=== PATIENT | female | born 1965 | race Two or more races ===

== ENCOUNTER 2023-01-08 00:33 | Emergency (ER) | payer SELFPAY ==
[~2023-01-08] VITALS: Ht 157.5 cm; Wt 65.0 kg
[2023-01-08 00:43] VITALS: TEMP 98.4
[2023-01-08] MEDS ORDERED: IBUP-1492 PO (02:55)
[2023-01-08] MEDS ORDERED: IBUPROFEN 600 MG TABLET PO ONE (03:00)
[2023-01-08 03:25] VITALS: BP 130/72; PULSE 65; RESP 16
== END 2023-01-08 04:11 | disposition home or self-care (01) ==
LOC: EMS 00:33
DX: S63.501A Unspecified sprain of right wrist, initial encounter (principal); S43.401A Unspecified sprain of right shoulder joint, initial encounter; X58.XXXA Exposure to other specified factors, initial encounter; Y93.89 Activity, other specified; Y92.89 Other specified places as the place of occurrence of the external cause; Y99.8 Other external cause status
CPT/HCPCS: 99284; 73020-TC; 73100-99; Z7502; Z7610